=== PATIENT | male | born 1985 | race Two or more races ===

== ENCOUNTER 2019-12-19 14:24 | Emergency (ER) | payer MEDICAID, OTHER ==
[~2019-12-19] VITALS: Ht 185.4 cm; Wt 134.3 kg
[2019-12-19 14:39] VITALS: BP 128/84
[2019-12-19] MEDS ORDERED: KETOROLAC TROMETH 60MG/2ML VIAL IM ONE (16:00)
== END 2019-12-19 16:27 | disposition home or self-care (01) ==
LOC: ER 14:24
DX: S00.83XA Contusion of other part of head, initial encounter (principal); S60.222A Contusion of left hand, initial encounter; S50.812A Abrasion of left forearm, initial encounter; V29.40XA Motorcycle driver injured in collision with unspecified motor vehicles in traffic accident, initial encounter; Y93.89 Activity, other specified; Y92.488 Other paved roadways as the place of occurrence of the external cause; Y99.8 Other external cause status
CPT/HCPCS: 70450; 70486; 73130; J1885